=== PATIENT | male | born 1995 | race Caucasian/White ===

== ENCOUNTER → 2021-06-29 09:56 | Outpatient (CLI) | payer OTHER, SELFPAY ==
[2021-06-29 11:00] LABS: COVID19 -Nasal RAPID Negative (Negative)
== END ==
PROVIDERS: Visit Provider Family Medicine Sleep Medicine
DX: Z20.822 Contact with and (suspected) exposure to COVID-19 (principal)
CPT/HCPCS: 87635; C9803

== ENCOUNTER 2021-06-30 10:36 | Day surgery (SDC) | payer OTHER, SELFPAY ==
[2021-06-27 13:50] VITALS: BMI 26.0
[2021-06-30 11:09] VITALS: BP 114/61; PULSE 54; RESP 16; TEMP 36.8; O2SAT 98; BMI 25.8
[2021-06-30] MEDS: OXYMETAZOLINE NASAL SPRAY 15 ML 2 SPRAYS NASAL ×2 (11:27→13:15)
[2021-06-30] MEDS: LACTATED RINGERS 1,000 ML 42 ML IV (11:31)
--- NOTE | 2021-06-30 12:26 | PM.PREOP ---
Pre-operative Note Interval Note History & Physical reviewed/Exam performed by Physician: Yes Changes to H&P: No
--- NOTE | 2021-06-30 12:26 | PM.HP.1 ---
History of Present Illness History of Present Illness Date Patient Seen: 06/30/21 Time Patient Seen: 12:27 Chief complaint: Nasal airway obstruction, septal deviation Narrative: 26-year-old male last seen in clinic 05/24/2021 for left greater than right nasal airway obstruction, worse with exercise, with known 3 to 4+ left septal deviation, presents for septoplasty and inferior turbinate reduction. No interval health changes, no recent cough, cold, or fever. Patient History Medical History Allergic rhinitis Hearing loss Nasal obstruction Nasal septal deviation Nasal turbinate hypertrophy Tinnitus Surgical History No history of previous surgery Family & Social History Social History: household members friend(s) Tobacco & Substance use: Tobacco type e-cigarettes Smoking Status Current every day smoker alcohol intake current alcohol intake frequency a few times a week Substance Use Type does not use Meds Home Medications and Allergies Home Medications Medication Instructions Recorded Confirmed Type No Known Home Medications 06/27/21 06/27/21 History Allergies Allergy/AdvReac Type Severity Reaction Status Date / Time No Known Drug Allergies Allergy Verified 06/30/21 11:04 Review of Systems Review of Systems Narrative: Negative except as listed in the HPI Exam Vital Signs (past 8 hours): - 06/30/21 11:09 Temperature 98.2 F Pulse Rate 54 L Respiratory Rate 16 Blood Pressure 114/61 Pulse Oximetry 98 Oxygen Delivery Method Room Air Narrative Exam Narrative: Well-developed well-nourished fit male in no acute distress, 3 to 4+ left septal deviation, heart regular rate and rhythm without murmur, lungs clear to auscultation bilaterally Assessment & Plan Assessment & Plan narrative: Assessment: Nasal airway obstruction, septal deviation, inferior turbinate hypertrophy Plan: Following discussion of the material risks benefits complications and alternatives, the patient elected to proceed with septoplasty and bilateral inferior turbinate reduction as outpatient. Time Spent With Patient Critical Care time: I spent a total of [] minutes of critical care time on this patient's care today; this time is exclusive of procedural time.
--- NOTE | 2021-06-30 12:29 | PM.OP.1 ---
Operative Date/Time/Diagnoses Date of procedure: 06/30/21 Time of procedure: 14:07 Pre-op diagnosis: Nasal airway obstruction, septal deviation, inferior turbinate hypertrophy Post-op diagnosis: same Procedure & Clinicians Procedure: 1. Septoplasty 2. Bilateral inferior turbinate reduction via intramural cautery Same procedure as scheduled: Yes Indications: 26-year-old male with the above diagnoses incompletely managed with medical therapy presents for the above procedures. Following discussion of the material risks benefits complications and alternatives, the patient elected to proceed. Surgeon: Rogers Clark Click Yes if Unassisted: Yes Anesthesia Type: General and Local Operative Notes Findings: 3 to 4+ left septal deviation, right greater than left inferior turbinate hypertrophy. Small LEFT ant flap perforation during dissection, repaired at closure. Closure Type: primary Estimated Blood Loss (mL): 30 Procedure in detail: Following identification and confirmation of consent as well as preoperative Afrin nasal spray, the patient was brought to the operating room suite and placed in the supine position. General endotracheal anesthesia was administered. I infiltrated the septum widely bilaterally with 1% lidocaine 1 100,000 epinephrine followed by temporary packing with cotton with Afrin and 4% lidocaine. Following sterile prep and drape, the packing was removed and I performed a right alisia-transfixion incision, elevated the right mucoperichondrial and mucoperiosteal flap. I disarticulated near the bony/cartilaginous junction and elevated the left mucoperiosteal flap. Deviated portions of the perpendicular plate of the ethmoid and vomer were resected. The residual quadrilateral cartilage was further straightened by trimming it inferiorly as well as reducing the maxillary crest. A 2 mm strip of cartilage paralleling the residual 1 cm dorsal and caudal strut was resected to further straighten the quadrilateral cartilage. The hemitransfixion incision was closed with interrupted 5 0 chromic followed by a running 4 0 plain gut mattress suture to reapproximate the septal flaps. At case completion, 20/1000th of an inch silastic splints were placed bilaterally, sutured anteriorly with a single 4 0 nylon. The head of each inferior turbinate had been previously infiltrated with additional local anesthetic and a 25 gauge spinal needle was used to impale the length of the turbinate, with cautery on a setting of 15 activated on slow withdrawal over 2 passes. The turbinates were then outfractured. The procedure completed, sponge and needle counts were correct and the patient was extubated in the operating room and taken to recovery room in stable condition without known complication. Postoperative care: Nasal saline every hour while awake, Vaseline or Polysporin to the nostrils at all times, begin irrigations t.i.d. beginning pod 1. Humidifier at the bedside blowing on the face. Tylenol alternating with Advil for pain control, oxycodone if necessary for breakthrough pain. Complications: none Post-operative Condition: stable Disposition: same day surgery Plan for aftercare: Nasal saline every hour while awake, begin irrigations t.i.d. tomorrow if desired. Polysporin to the nostrils at all times, Tylenol alternating with Advil for pain control, oxycodone for breakthrough pain. Elevate head of bed, no nose blowing, no straining for 2 weeks. Follow-up in 1 week for nasal splint removal.
--- NOTE | 2021-06-30 12:41 | SUR.OPER ---
Supine on padded OR bed, head on pillow, arms padded and tucked at sides, legs uncrossed, safety belt at thigh, tape over blanket over lower legs .
[2021-06-30] MEDS: BACITRACIN 28 GM OINT 1 APPLIC TOP (13:11)
[2021-06-30] MEDS: LIDOCAINE 1% W/EPI 20 ML INJ (13:12)
[2021-06-30] MEDS: LIDOCAINE 4% SOLN 50 ML 20 ML TOP (13:13)
[2021-06-30 14:15] VITALS: BP 113/58; PULSE 62; RESP 16; TEMP 36.1; O2SAT 98
[2021-06-30 14:19] VITALS: BP 106/66; PULSE 58; RESP 16; TEMP 36.4; O2SAT 93
[2021-06-30 14:30] VITALS: BP 101/45; PULSE 62; RESP 16; TEMP 36.1; O2SAT 97
[2021-06-30 14:58] VITALS: BP 118/55; PULSE 60; RESP 16; O2SAT 98
[2021-06-30 15:00] VITALS: BP 118/62; PULSE 58; RESP 16; TEMP 36.7; O2SAT 98
[2021-06-30] MEDS: ACETAMINOPHEN 325 MG TABLET 650 MG PO (15:01)
[2021-06-30] MEDS: OXYCODONE IR 5 MG TABLET PO (15:03)
== END 2021-06-30 15:10 | disposition home or self-care (01) ==
PROVIDERS: PCP Family Medicine; Referring Provider Otolaryngology; Visit Provider Otolaryngology
PROC: (CPT 30520; principal; 2021-06-30 11:45)
DX: J34.2 Deviated nasal septum (principal); J34.3 Hypertrophy of nasal turbinates; J98.8 Other specified respiratory disorders
CPT/HCPCS: 30520; 30802; A9270; J1100; J2405; J2704; J3010